=== PATIENT | female | born 1955 | race Caucasian/White ===

== ENCOUNTER 2016-11-13 20:09 | Inpatient (IN) | payer OTHER ==
[~2016-11-13] VITALS: Ht 157.5 cm; Wt 110.5 kg
--- NOTE | ~2016-11-13 | CON ---
PATIENT'S NAME: ROSALEE ZAMARRIPA [facility] AGE: 61 Y [address] ROOM: [place] [address] LOCATION: GPCU ADMIT DATE: 11/13/2016 Consultation DISCHARGE DATE: FAMILY PHYSICIAN: Andre Marte MD ATTENDING PHYSICIAN: ADITYA KILLIAN REFERRING PHYSICIAN: CLAUDIA HARDWICK MD CHIEF COMPLAINT: Sore throat. HISTORY OF PRESENT ILLNESS: The patient is a pleasant 61-year-old female with a history of poorly controlled diabetes mellitus type 2, hypertension, and hypothyroidism, who was transferred to [facility] yesterday with intractable nausea, vomiting, and hypokalemia. She was found to have acute kidney injury, prerenal, hyperglycemia, as well as bilateral otitis media with effusion, and she has been treated accordingly. She has been placed on Flonase 2 sprays daily, as well as a tight glucose control. She is also receiving Rocephin b.i.d. and TobraDex to the bilateral eyes and Lovenox. The patient complains to me of a severe sore throat, worse than any she has ever had. She states this has been present intermittently over the last 10 to 11 days. She states that swallowing seems to be functioning well other than when the pain is severe. She has had no issues with breathing. She complains of her ears feeling plugged and poor hearing. She has had some nasal congestion as well. She previously had no chronic ear, nose, or throat history including no history of surgeries of the ears, nose, and throat. She does not typically take ENT medications at home. She admits that her sugars have been poorly controlled recently in the 300 to 400 range. PAST MEDICAL HISTORY: 1. Essential hypertension. 2. Diabetes mellitus, type 2. 3. Hypothyroidism. 4. Gout. 5. Hyperlipidemia. 6. Morbid obesity. 7. Chronic dyspepsia. MEDICATIONS: Reviewed and available in the chart. ALLERGIES: NO LISTED MEDICAL ALLERGIES. FAMILY HISTORY: PATIENT'S NAME: ROSALEE ZAMARRIPA [facility] AGE: 61 Y [address] ROOM: [place] [address] LOCATION: GPCU ADMIT DATE: 11/13/2016 Consultation DISCHARGE DATE: FAMILY PHYSICIAN: Andre Marte MD ATTENDING PHYSICIAN: KILLIAN,BURGESS Heart disease in her father. No other chronic ear, nose, or throat history. SOCIAL HISTORY: She is a non-smoker and uses no significant alcohol. REVIEW OF SYSTEMS: A ten-point review of systems was performed, and is negative except as per the HPI. PHYSICAL EXAMINATION: VITAL SIGNS: Temperature was 98.1, respirations were 21, heart rate was 111, blood pressure was 145/64, and SaO2 is 98% on room air. GENERAL: She is well appearing, morbidly obese, and lying supine in her hospital bed. She does sit at the side of the bed without difficulty. She has no hoarseness or dysarthria. There was no stertor or stridor. EARS: Auditory canals are clear. TMs show serous effusion bilaterally. No evidence of cholesteatoma. NOSE: Moderate anterior rhinorrhea with crusting. However, the remainder of the nose was unremarkable. ORAL CAVITY: Mucous membranes are moist. Tongue is midline and mobile. Tonsils are 1+ and unremarkable. The posterolateral pharynx shows erythema of the wall, left greater than right. There is no apparent fluid collection, uvular deviation, or abscess. The tongue and remainder of the buccal mucosa are unremarkable. NECK: She is tender to palpation in the left level II greater than right. The remainder of the neck is without palpable lymphadenopathy or masses. Thyroid was without significant palpable nodularity. FLEXIBLE LARYNGOSCOPY: A flexible laryngoscope was passed through the left naris into the nasopharynx after Afrin lidocaine spray. The nasopharynx, oropharynx, and hypopharynx are unremarkable with the exception of erythema noted on the left posterolateral pharynx greater than right as noted on previous physical exam. The hypopharynx, supraglottis, and subglottis are unremarkable. True vocal folds move well in abduction and adduction. There is no evidence of mass or ulceration or other concerning findings. The scope was removed. ASSESSMENT: 1. Acute pharyngitis, likely viral initially, now with a possible underlying bacterial component. 2. Poorly controlled diabetes mellitus. PLAN: We discussed maintenance of her current therapy. I would recommend transitioning to a broad-spectrum oral antibiotic covering for otitis media PATIENT'S NAME: ROSALEE ZAMARRIPA [facility] AGE: 61 Y [address] ROOM: [address] [address] [facility] AD[facility] DATE: 11/13/2016 Consultation DISCHARGE DATE: FAMILY PHYSICIAN: Andre Marte MD ATTENDING PHYSICIAN: ADITYA KILLIAN such as Augmentin or cefdinir at the time of discharge and maintaining this for 2 weeks. I have recommended followup in my Clinic in two weeks for a re- check. We discussed that this sore throat will likely improve faster than the otitis media, and that she may have plugging in her ears for a period of time. If she is not improved in two weeks, we discussed bilateral myringotomy with tube placement in the Clinic, and her questions were answered regarding this. I have encouraged her to maintain a tighter glucose control. She will continue the Flonase as ordered by Dr. Escoto. CLAUDIA HARDWICK MD MJ/modl /[id number] CC: Peggy Escoto MD d: 11/14/162020 t: 11/17/16 1117, CONSULTATION REPORT
--- NOTE | ~2016-11-13 | DS ---
PATIENT'S NAME: ROSALEE ZAMARRIPA [facility] AGE: 61 Y [address] ROOM: [id number] [place], [place] [address] LOCATION: GPCU ADMIT DATE: 11/13/2016 Discharge Summary DISCHARGE DATE: 11/16/2016 FAMILY PHYSICIAN: Andre Marte MD ATTENDING PHYSICIAN: Jonah Lamb FINAL DIAGNOSES: 1. Acute kidney injury. 2. Hyperkalemia secondary to acute kidney injury. 3. Intractable nausea and vomiting. 4. Hyperglycemia/poorly controlled diabetes mellitus type 2. 5. Bilateral otitis media with hearing loss. 6. Essential hypertension. 7. Left foot pain, possible gout. 8. Hypomagnesemia. 9. Cough. HISTORY OF PRESENT ILLNESS: For details of admission, please see the history and physical dictated by Dr. Toni Montgomery. In short, the patient had been feeling poorly for sometime and developed nausea and vomiting. She presented to an outside facility and was found to be in acute renal failure with an elevated potassium, and she received a dose of Kayexalate and was transferred here. On arrival here, she was admitted to PCU. LABORATORY DATA: Sodium on admission was 129, discharge 133; potassium on admission was 5, discharge 4; chloride on admission 94, discharge 99; CO2 on admission 23, discharge 26; BUN on admission 42, discharge 6; and creatinine on admission 2, discharge 1.2, it was low at 0.9. On admission, alkaline phosphatase 87, AST 15, ALT 18. Magnesium at discharge is 1.4. Amylase 42 on admission, lipase 218. Hemoglobin A1c 10.1. White blood cell count 13.4 on admission with a hemoglobin 11.5, hematocrit 33.2, platelet count 282. Procalcitonin on admission was 0.17. Urinalysis: 10-20 white blood cells, few bacteria. Blood culture, urine culture, and throat culture were all negative. X-RAY DATA: Supine and upright abdominal film showed a nonobstructive bowel gas pattern. Chest x-ray on did not show any evidence of a pneumonia. HOSPITAL COURSE: The patient was admitted to the floor. She was given aggressive IV hydration. Her kidney function and electrolytes were monitored closely. She was given IV Zofran for nausea. On arrival, her potassium had started to come down. Her blood sugars were very high, and she was controlled with sliding scale insulin. Decision was made to place her on IV antibiotic of Rocephin 1 g IV q.12 hours. She continued to receive fluid boluses to maintain adequate blood pressure. On the morning of , she was complaining PATIENT'S NAME: ROSALEE ZAMARRIPA [facility] AGE: 61 Y [address] ROOM: [place] [address] LOCATION: GPCU ADMIT DATE: 11/13/2016 Discharge Summary DISCHARGE DATE: 11/16/2016 FAMILY PHYSICIAN: Andre Marte MD ATTENDING PHYSICIAN: Jonah Lamb of significant sore throat and hearing loss. Her exam was unremarkable. Dr. Chriss Gale from [facility] did see her in evaluation. At that time, it was also felt that she had mild conjunctivitis, and she was put on TobraDex. In terms of her blood sugar, she was started on NovoLog, carb count. Dr. Gale did see her and overall concurred that she had otitis media. His thought was that we should probably treat her for 14 days with antibiotic. He would see her as an outpatient. She did continue to improve. Continued to have problems with her hearing. We continued to use Flonase and Mucinex. Her kidney function improved. We did restart all of her medications except for the Aldactone. We did change her from Rocephin to Omnicef. On the day of discharge, she did complain about pain in her foot. Her pain in her foot was more in the mid foot. She did have some mild erythema of the first MTP joint. She was given a dose of Solu-Medrol. It was felt that she was stable for discharge. She did share that she would like to do the carb count to try and control her blood sugars. She is discharged to home. She will follow her diabetic diet. She is to see Dr. Chriss Gale, [facility], in [address] to [address] Andre Marte on November 20 at 9 a.m. DISCHARGE MEDICATIONS: 1. Magnesium oxide 400 mg 1 twice daily for 3 days, then 1 pill daily. 2. Allopurinol 100 mg daily. 3. Aspirin 325 mg daily. 4. Omnicef 300 mg twice daily to complete a 14-day course. 5. Lasix 60 mg daily. 6. Flonase 2 sprays in each nostril daily. 7. Humibid LA 600 mg twice daily. 8. Synthroid 175 mcg daily. 9. Cozaar 100 mg daily. 10. NovoLog 1 unit per 15 g of carbs. She was given a prescription for NovoLog pen and needles for the pen. 11. Metformin 1000 mg twice daily. 12. Lopressor 100 mg daily in the morning. 13. Metoprolol 50 mg at night. 14. Multivitamin daily. 15. Pravachol 40 mg daily. 16. TobraDex 1 drop to both eyes 5 times daily. 17. Chloraseptic spray as needed. 18. Potassium 20 mEq at bedtime. 19. Ranitidine 75 mg at bedtime and 75 mg during the day as needed. 20. She was also given [place] 5/325 one every 4 to 6 hours as needed for pain. OVERALL PROGNOSIS: At discharge was good. PATIENT'S NAME: ROSALEE ZAMARRIPA [facility] AGE: 61 Y [address] ROOM: [place] [address] [facility] ADMIT DATE: 11/13/2016 Discharge Summary DISCHARGE DATE: 11/16/2016 FAMILY PHYSICIAN: Andre Marte MD ATTENDING PHYSICIAN: Jonah Lamb OLIVIA BORJA MD LAW/raymundo /[id number] d: 11/17/16 0335 t: 11/20/16 1509, DISCHARGE SUMMARY
--- NOTE | ~2016-11-13 | HP ---
PATIENT'S NAME: ROSALEE ZAMRARIPA [facility] AGE: 61 Y [address] ROOM: [address] [address] LOCATION: GPCU ADMIT DATE: 11/13/2016 History & Physical DISCHARGE DATE: FAMILY PHYSICIAN: PHYSICIAN, UNKNOWN ATTENDING PHYSICIAN: ADITYA KILLIAN DATE OF SERVICE: CHIEF COMPLAINT: Intractable nausea and vomiting. HISTORY OF PRESENTING ILLNESS: This is a 61-year-old white female with previous history of diabetes mellitus type 2, hypertension, and hypothyroidism, was transferred to [facility] from [place] this evening with complaints of intractable nausea, vomiting, and hyperkalemia. Her symptoms began about a week ago with some upper respiratory congestion. She describes nasal congestion, soreness in her throat, and fullness in her ears. 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 She noticed progressive loss of hearing and saw her primary care provider for that. She states that she was recommended for symptomatic measures and did not receive any antibiotics or any other interventions. Over the course of the week, her symptoms seemed to get worse and she developed progressive malaise and myalgias. For the last 48 hours, she has been experiencing intractable nausea and vomiting and unable to "keep anything down." She noticed that her blood sugars were uncontrolled and decided to go to the emergency room for definitive evaluation and management. Once she arrived there, she was found have a potassium of 6.3. Request for emergent transfer to this facility for definitive evaluation and management was made. On her arrival to the floor, she reports feeling "stuffy" and sore. She admits to a little bit of persistent nausea, but has not vomited. She did take some Kayexalate prior to her transfer and had a fairly large BM after her arrival here. She did experience some relief with that. She denies wyatt chest pain. Denies significant shortness of breath. She has had some occasional cough which is minimally productive. No wyatt abdominal pain. Stools have been minimal, and she had not stooled for a couple of days until just this evening. She denies any urinary complaints. No numbness or tingling in her extremities or any other associated physical or constitutional complaints. ALLERGIES: TO MORPHINE. PATIENT'S NAME: ROSALEE ZAMARRIPA [facility] AGE: 61 Y [address] ROOM: [id number] [place], [place] [address] [facility] ADMIT DATE: 11/13/2016 History & Physical DISCHARGE DATE: FAMILY PHYSICIAN: PHYSICIAN, UNKNOWN ATTENDING PHYSICIAN: ADITYA KILLIAN ILLNESSES: 1. Essential hypertension. 2. Diabetes mellitus type 2. 3. Hypothyroidism. 4. Gout. 5. Hyperlipidemia. 6. Morbid obesity. 7. Chronic dyspepsia. CURRENT MEDICATIONS: 1. Lasix 80 mg p.o. q.a.m. 2. Metformin 500 mg 2 tabs p.o. b.i.d. 3. Spironolactone 100 mg p.o. daily. 4. Losartan 100 mg p.o. daily. 5. Metoprolol 100 mg p.o. q.a.m. and 50 mg p.o. q.p.m. 6. Synthroid 175 mcg p.o. daily. 7. Pravastatin 40 mg p.o. daily. 8. Potassium 10 mEq p.o. daily. 9. Aspirin 325 mg p.o. daily. 10. Cranberry soft gels daily. 11. Multivitamin daily. 12. Zantac 75 p.o. q.p.m. p.r.n. FAMILY HISTORY: Significant for heart disease in her father who at the age 81. Mother also had heart disease. SOCIAL HISTORY: She is retired. and lives in [place]. She is a nonsmoker, and there is no significant history of alcohol use. REVIEW OF SYSTEMS: As per HPI. All other organ systems reviewed and are negative. OBJECTIVE: VITAL SIGNS: Temperature 98.1, pulse 90, respirations 18, blood pressure 106/70, O2 saturation 96% on room air. GENERAL: She is anxious, cooperative, in no acute distress. SKIN: Supple, pink, warm, and dry. No obvious rashes. HEENT: Otherwise, normocephalic. Sclerae nonicteric. Pupils are equal, round, and reactive to light and accommodation. Extraocular movements appear intact. TMs are bulging, injected bilaterally. Nasal turbinates are normal in appearance. Oropharynx clear. Mucous membranes are pink and moist. NECK: Supple. Plethoric and obese. No masses or adenopathy. No thyromegaly. No JVD. PATIENT'S NAME: ROSALEE ZAMARRIPA [facility] AGE: 61 Y [address] ROOM: [id number] [place], [place] [address] [facility] ADMIT DATE: 11/13/2016 History & Physical DISCHARGE DATE: FAMILY PHYSICIAN: PHYSICIAN, UNKNOWN ATTENDING PHYSICIAN: ADITYA KILLIAN LUNGS: Chest wall is symmetrical. HEART: Regular without murmurs. LUNGS: Coarse, but otherwise clear. No crackles or wheezes are heard. ABDOMEN: Soft and obese. Nontender. Bowel sounds are present. No masses. No hepatosplenomegaly. and RECTAL: Not done. EXTREMITIES: Display no clubbing, cyanosis, or edema. NEUROLOGIC: She is hard of hearing, but there are no focal deficits. LABORATORY AND X-RAY DATA: Laboratory and x-ray data from [facility]. CBC showed a white blood cell count elevated at 18.4, hemoglobin 14.0, hematocrit 38.6, platelets 323. Chemistries reveal sodium and potassium 125 and 6.3 respectively, chloride and CO2 of 87 and 25, BUN and creatinine 42 and 2.1 respectively, calcium is 11.5, glucose 336. Albumin a little low at 3.2, AST and ALT 14 and 22 respectively, bilirubin is 0.2. TSH was within normal limits at 0.367. Amylase and lipase are also normal. ASSESSMENT AND PLAN: 1. Hyperkalemia, severe. She will be admitted to inpatient care. She has already received Kayexalate, and we will plan to repeat chemistries now. I suspect spironolactone and potassium supplementation as likely causes. We will follow her electrolytes serially and make additional interventions if necessary. 2. Intractable nausea and vomiting. We will hold her n.p.o. for now and continue with IV fluids. I suspect a viral syndrome. We will get KUB x- ray and follow up on that when the results are known. Consider additional imaging, although I will hold off given her impaired renal function for now. 3. Acute kidney injury, appears prerenal. Plan to continue with IV fluids as above and watch for improvement. We will plan to repeat renal function tests again in the morning. 4. Hyperglycemia. We will manage with Accu-Cheks and sliding scale insulin while she is inpatient. She is nonketotic appearing. 5. Otitis media with effusion, bilaterally. We will manage symptomatically. We will place her on some Mucinex as she tolerates and steroid nasal spray. If she is not showing any improvement, we will consider ENT evaluation. 6. Essential hypertension. Appears to be adequately controlled. We will monitor the trend and make adjustments as necessary. 7. Moderate protein-calorie malnutrition. We will hold her n.p.o. for now at least until she is tolerating regular oral intake and try to encourage balanced diet thereafter. 8. Morbid obesity. We will need to work on some long-term strategies for weight loss including calorie reduction, increased exercise, etc. PATIENT'S NAME: ROSALEE ZAMARRIPA [facility] AGE: 61 Y [address] ROOM: [place] [address] [facility] ADMIT DATE: 11/13/2016 History & Physical DISCHARGE DATE: FAMILY PHYSICIAN: PHYSICIAN, UNKNOWN ATTENDING PHYSICIAN: ADITYA KILLIAN 9. Hypothyroidism. Appears to be adequately replaced. Continue with thyroid supplementation and monitor. 10. Deep venous thrombosis prophylaxis. We will use low-dose Lovenox while she is inpatient. MD YAHAIRA KUHN/raymundo /[id number] D: [id number] T: [id number] HISTORY & PHYSICAL
--- NOTE | 2016-11-13 22:14 | NUR ---
Patient admitted from [place] at 2024. 9 days ago she started having acid reflux at work which lead to an increased sore throat with cough and sinus congestion. [place] very fatigued and two days later she started vomiting about once a day with nausea with decreased appetite. Was not getting any better so she went into the clinic. Hx of diabetes, neuropathy, HTN, high cholesterol, arthritis, pneumonia, and thyroid disease. Allergy to morphine. Up to date on pneumonia vaccine. Started on lovenox, but refused pneumatics. Home med recon will need to be done in am as list is inaccurate and patient is unsure of dosages.
[2016-11-13 23:05] LABS: BILIRUBIN URINE NEGATIVE (NEGATIVE); BLOOD URINE NEGATIVE /UL (NEGATIVE); COLOR URINE YELLOW (YELLOW); GLUCOSE URINE NEGATIVE (NEGATIVE); KETONE URINE NEGATIVE (NEGATIVE); LEUKOCYTES URINE 100 /UL (NEGATIVE); NITRITE URINE NEGATIVE (NEGATIVE); PROTEIN URINE NEGATIVE (NEGATIVE); TURBIDITY URINE CLEAR (CLEAR); UROBILINOGEN URINE NORMAL (NORMAL)
[2016-11-13 23:17] LABS: BACTERIA URINE FEW (NEGATIVE); HYALINE CAST URINE 0-2 #/LPF (NEGATIVE); RBC URINE NEGATIVE #/HPF (NEGATIVE)
[2016-11-14 03:35] LABS: BASOPHIL # 0.1 K/uL (0.0-0.2); BASOPHIL % 0.7 %; EOSINOPHIL # 0.3 K/uL (0.0-0.5); EOSINOPHIL % 2.5 %; HEMATOCRIT 33.2 % (33.0-46.0); HEMOGLOBIN 11.5 g/dL (10.0-15.0); IMMATURE GRANULOCYTE # 0.3 K/uL (0.0-0.3); IMMATURE GRANULOCYTE % 2.1 %; LYMPHOCYTE # 3.2 K/uL (0.8-4.0); LYMPHOCYTE % 24.1 %; MCHC 34.6 gm/dL (32.0-36.5); MCV 95.1 fl (83.0-98.0); MONOCYTE # 0.9 K/uL (0.0-1.0); MONOCYTE % 6.9 %; MPV 9.3 fl (9.4-12.4); NEUTROPHIL # (ANC) 8.5 K/uL (1.8-7.8); NEUTROPHIL % 63.7 %; NRBC % 0 /100WBC (0-0.00); PLATELET COUNT 282 K/uL (150-450); RBC 3.49 M/uL (3.50-5.50); RDW-CV 12.6 % (11.9-14.6); WBC 13.4 K/uL (4.0-11.0)
[2016-11-14 03:58] LABS: ALBUMIN 2.6 gm/dL (3.5-5.0); ANION GAP 16.2 (10.0-19.0); CALCIUM 9.3 mg/dL (8.5-10.5); CREATININE 1.5 mg/dL (0.5-1.1); POTASSIUM 4.2 mMol/L (3.7-5.1); TOTAL BILIRUBIN 0.2 mg/dL (0.0-1.5); TOTAL PROTEIN 7.1 g/dL (6.0-8.4)
--- NOTE | 2016-11-14 05:15 | NUR ---
Significant Event: Patient alert and oriented x3. Up with standby assist. Vitals stable, placed on 1liter oxygen while sleeping otherwise room air. Continues to have persistent non-productive cough. Lungs remain clear. No reports of nausea and no emesis this shift. Right hand IV running fluids. No complaints of any pain. Pleasant/cooperative with cares Follow up: monitor labs
--- NOTE | 2016-11-14 10:39 | NUR ---
Diabetes center note 1000 Spoke briefly with patient and informed her of her A1C of 10.1 % upon admission. Patient states "...I haven't been taking very good care of my diabetes." Reports having a blood gluocse meter at home and takes Metformin on a regular bases, but admits that she is suppose to take Glyburide also, but states she doesn't take that medication on a regular bases. Diabetes Management booklet and Diabetes survival skills assessement form provided and encouraged her to complete today, will continue to follow to assess educational needs.
[2016-11-14] MEDS ORDERED: LASIX40 MG PO (11:13)
[2016-11-14] MEDS ORDERED: METFORMIN HCL500 MG PO (11:13)
[2016-11-14] MEDS ORDERED: ALDACTONE100 MG PO (11:14)
[2016-11-14] MEDS ORDERED: COZAAR100 MG PO (11:14)
[2016-11-14] MEDS ORDERED: GLUCOPHAGE500 MG PO (11:14)
[2016-11-14] MEDS ORDERED: LOPRESSOR100 MG PO ×2 (11:18→11:20)
[2016-11-14] MEDS ORDERED: PRAVACHOL40 MG PO (11:20)
[2016-11-14] MEDS ORDERED: ASPIRIN325 MG PO (11:20)
[2016-11-14] MEDS ORDERED: K-TAB 10MEQ10 MEQ PO (11:20)
[2016-11-14] MEDS ORDERED: THERA-VITE W/ B1 TAB PO (11:21)
[2016-11-14] MEDS ORDERED: RANITIDINE HCL75 MG PO ×2 (11:21)
[2016-11-14] MEDS ORDERED: ZYLOPRIM100 MG PO (11:22)
[2016-11-14] MEDS ORDERED: GLUCOTROL5 MG PO ×2 (11:22)
[2016-11-14] MEDS ORDERED: LEVOTHYROXINE175 MCG PO (11:46)
--- NOTE | 2016-11-14 12:40 | NUR ---
Introduced self and care management services to patient. Lives in [place] with spouse. Plans on going home on discharge, denies needs. Spouse will assist at home as needed. Will follow and assist with dc planning as needs identified.
--- NOTE | 2016-11-14 14:01 | NUR ---
Diabetes center note: 1400 Met with patient and spouse to discuss diabetes. Patient again admits that she has not been taking proper care of her diabetes. At this time CDE discussed with them, current A1C of 10 % and that Dr. Escoto is holding the Metformin due to kidney function and added carb counting at meals. Discussed progression of type 2 diabetes and MD may need to change diabetes medication and/or need for insulin injection, patient states she would rather not have to take insulin. We discussed the risks of complications related to heart, eyes, kidneys and nerves and how we can reduce risks of complications related to these with proper control of blood sugars. Both states understanding and will start reading in the Diabetes Management booklet and agree to complete assessment form today.
--- NOTE | 2016-11-14 18:48 | NUR ---
Significant Event: A/O x3, cooperative with cares. VSS, SBPs 140s, HRs 90-110s, on room air. No c/o pain. Dr. Gale consulted; up to see patient. Flexible scope used to look in patient's nose et throat. Throat culture collected et sent to lab. Diabetic ed up to see patient. Up to bathroom with SBA. Follow up:
[2016-11-15 04:15] LABS: BASOPHIL # 0.1 K/uL (0.0-0.2); BASOPHIL % 0.8 %; EOSINOPHIL # 0.3 K/uL (0.0-0.5); EOSINOPHIL % 2.8 %; HEMATOCRIT 31.8 % (33.0-46.0); HEMOGLOBIN 10.9 g/dL (10.0-15.0); IMMATURE GRANULOCYTE # 0.3 K/uL (0.0-0.3); LYMPHOCYTE # 2.5 K/uL (0.8-4.0); LYMPHOCYTE % 24.6 %; MCH 33.2 pg (27.0-34.0); MCHC 34.3 gm/dL (32.0-36.5); MONOCYTE # 0.8 K/uL (0.0-1.0); MONOCYTE % 7.8 %; MPV 8.9 fl (9.4-12.4); NEUTROPHIL # (ANC) 6.2 K/uL (1.8-7.8); NRBC % 0 /100WBC (0-0.00); PLATELET COUNT 251 K/uL (150-450); RBC 3.28 M/uL (3.50-5.50); RDW-CV 12.7 % (11.9-14.6); WBC 10.2 K/uL (4.0-11.0)
[2016-11-15 04:29] LABS: ALBUMIN 2.4 gm/dL (3.5-5.0); ANION GAP 10.2 (10.0-19.0); BLOOD UREA NITROGEN 13 mg/dL (6-24); CALCIUM 8.3 mg/dL (8.5-10.5); CHLORIDE 107 mMol/L (96-110); CO2 26 mMol/L (22-32); CREATININE 0.9 mg/dL (0.5-1.1); ESTIMATED GFR (MDRD EQUATION) > 60; MAGNESIUM 1.4 mg/dL (1.8-2.6); PHOSPHORUS 2.6 mg/dL (2.5-4.9); POTASSIUM 4.2 mMol/L (3.7-5.1); SODIUM 139 mMol/L (135-145)
--- NOTE | 2016-11-15 04:39 | NUR ---
Significant Event: A/O X 3, HR 80-90'S. SBP 120'S TO 140'S. ABMULATES STAND BY ASSSIT. ON RA DURING DAY, DID REQUIRE 2L O2 WHILE SLEEPING. ACCU CHECK Q4 HOURS. NO NAUSEA OR ANY COMPLAINTS THIS EVENING. NO PAIN, NO PAIN MEDS GIVEN. NS AT 100 ML/HR. Follow up:
--- NOTE | 2016-11-15 16:39 | NUR ---
SIGNIFICANT EVENT: A/O x3. Cooperative with cares. VSS. SBP 130s-140s. Tachypneic with respirs 22-29. SOB with activity. Up to the bathroom SBA. Been on RA all day. No c/o pain or nausea this shift. IV to R) hand. IV antibiotics changed to PO. 2 grams of IV magnesium given. q4 accuchecks. Liquid diet. Diabetic Ed saw patient today in regards to patient being non-adherent checking her BG levels at home. Follow up: Possible d/c tomorrow 11/16.
--- NOTE | 2016-11-16 05:18 | NUR ---
Significant Event:A/Ox3. VSS on RA. Trace edema to bilateral ankles, patient c/o pain to R)foot when walking, minimal relief with ice, heat, compression and elevation. Accuchecks [phone]. PIV to R)hand saline locked. Follow up:Possbile discharge to home today.
--- NOTE | 2016-11-16 10:40 | NUR ---
Diabetes consult; Patient reports she may be discharged home today. The patient reports that she is interested in continuing Novolog insulin carb coverage upon dismissal. She reports having a large appetite and has failed on Victoza in the past. Discussed making good meal choices and increasing her fiber intake to promote satiety. She was shown how to count carbohydrates and dose Novolog insulin with 1 unit for every 15 grams of carbs. Action of the Novolog and coordination with meal coverage was discussed. The patient was shown how to operate an insulin pen. She is familiar with a pen device having used Victoza in the past. A note was left in the physician progress note indicating the patient's request to continue carb count. If the MD determines the patient should continue carb count on dismissal, the patient will need a script for an insulin pen and pen needles.
[2016-11-16 13:15] LABS: ALBUMIN 2.8 gm/dL (3.5-5.0); CALCIUM 8.6 mg/dL (8.5-10.5); CREATININE 1.2 mg/dL (0.5-1.1); MAGNESIUM 1.4 mg/dL (1.8-2.6)
[2016-11-16 13:21] LABS: PHOSPHORUS 1.6 mg/dL (2.5-4.9)
[2016-11-16] MEDS ORDERED: OMNICEF 300MG300 MG PO (13:45)
[2016-11-16] MEDS ORDERED: FLONASE 50 MCG/16 GM NOSE (13:50)
[2016-11-16] MEDS ORDERED: MUCINEX600 MG PO (13:50)
[2016-11-16] MEDS ORDERED: NOVOLOG100 UNIT/M SUB-Q (13:57)
[2016-11-16] MEDS ORDERED: TOBREX5 ML OPHTH (14:11)
[2016-11-16] MEDS ORDERED: CHLORASEPTIC SP1 BOT PO (14:13)
[2016-11-16] MEDS ORDERED: NORCO 5-325 TA1 EACH PO (14:22)
[2016-11-16] MEDS ORDERED: MAG-OX-400(241400 MG PO (14:41)
--- NOTE | 2016-11-16 16:20 | NUR ---
PATIENT A/OX3, VSS ON ROOM AIR. GAVE PT. 20MG DOSE OF PREDNISONE BEFORE DISMISSAL D/T RIGHT FOOT PAIN. PT. GETS UP AD JULIANNA IN ROOM. DISMISSAL INSTRUCTIONS, NEW MEDICATIONS GONE OVER WITH PATIENT AND . BLOOD SUGAR WAS 238, DID GIVE 4 UNITS OF NOVOLOG BEFORE DISMISSAL. NO FURTHER QUESTIONS AT THIS TIME. PT. 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 IV REMOVED FROM RIGHT HAND WITHOUT DIFFICULTLY. PT. DID EAT A FULL DIABETIC MEAL FOR LUNCH. ALL BELONGINGS SENT HOME WITH PATIENT.
== END 2016-11-16 16:00 | disposition disaster alternative care site (69) | DRG 683 ==
LOC: GPCU 20:09
PROVIDERS: Family Medicine; Internal Medicine; ADMIT Internal Medicine
PROC: 0CJS8ZZ Inspection of Larynx, Via Natural or Artificial Opening Endoscopic (ICD-10-PCS; principal; 2016-11-14)
DX: N17.9 Acute kidney failure, unspecified (principal); E44.0 Moderate protein-calorie malnutrition; Z68.41 Body mass index [BMI] 40.0-44.9, adult; E11.65 Type 2 diabetes mellitus with hyperglycemia; E87.5 Hyperkalemia; R11.2 Nausea with vomiting, unspecified; H65.93 Unspecified nonsuppurative otitis media, bilateral; H91.93 Unspecified hearing loss, bilateral; M10.9 Gout, unspecified; E83.42 Hypomagnesemia; E66.01 Morbid (severe) obesity due to excess calories; E03.9 Hypothyroidism, unspecified; I10 Essential (primary) hypertension; J02.9 Acute pharyngitis, unspecified; R10.13 Epigastric pain; E78.5 Hyperlipidemia, unspecified; Z79.84 Long term (current) use of oral hypoglycemic drugs; Z79.82 Long term (current) use of aspirin
CPT/HCPCS: A9270; J0696; J1650; J2405; J3475; J7030; J7040; J7512

== ENCOUNTER → 2016-11-13 | Outpatient (CLI) | payer OTHER ==
[~2016-11-13] MED LIST: ALDACTONE100 MG PO; ASPIRIN325 MG PO; CHLORASEPTIC SP1 BOT PO; COZAAR100 MG PO; FLONASE 50 MCG/16 GM NOSE; GLUCOPHAGE500 MG PO; GLUCOTROL5 MG PO; K-TAB 10MEQ10 MEQ PO; LASIX40 MG PO; LEVOTHYROXINE175 MCG PO; LOPRESSOR100 MG PO; MAG-OX-400(241400 MG PO; METFORMIN HCL500 MG PO; MUCINEX600 MG PO; NORCO 5-325 TA1 EACH PO; NOVOLOG100 UNIT/M SUB-Q; OMNICEF 300MG300 MG PO; PRAVACHOL40 MG PO; RANITIDINE HCL75 MG PO; THERA-VITE W/ B1 TAB PO; TOBREX5 ML OPHTH; ZYLOPRIM100 MG PO
== END | disposition disaster alternative care site (69) ==
LOC: GAIR 19:29
DX: E78.5 Hyperlipidemia, unspecified (principal); E11.65 Type 2 diabetes mellitus with hyperglycemia; E03.9 Hypothyroidism, unspecified; I10 Essential (primary) hypertension; M10.9 Gout, unspecified; R11.2 Nausea with vomiting, unspecified; Z90.89 Acquired absence of other organs; Z90.710 Acquired absence of both cervix and uterus; Z79.84 Long term (current) use of oral hypoglycemic drugs; Z79.899 Other long term (current) drug therapy; Z87.891 Personal history of nicotine dependence
CPT/HCPCS: A0422; A0431; A0436